=== PATIENT | male | born 1955 | race Caucasian/White ===

== ENCOUNTER 2025-07-15 05:30 | Day surgery (SDC) | payer MEDICARE, OTHER ==
[~2025-07-15] VITALS: Ht 193 cm; Wt 105.0 kg
[~2025-07-15 05:30] MED LIST: LACTATED RINGER'S 1,000 ML IV SCH
[2025-07-15 06:07] VITALS: BP 138/83
[2025-07-15] MEDS ORDERED: VITAMIN D3125 MC2 PO (06:09)
[2025-07-15] MEDS ORDERED: TURMERIC500 M3 PO (06:10)
[2025-07-15] MEDS ORDERED: BEET ROOT500 MG PO (06:11)
[2025-07-15] MEDS ORDERED: [UNRECOGNIZED DRUG - OTHER] (06:11)
[2025-07-15] MEDS ORDERED: [UNRECOGNIZED DRUG - OTHER] (06:12)
[2025-07-15] MEDS ORDERED: EO MEGA (06:12)
[2025-07-15] MEDS ORDERED: [UNRECOGNIZED DRUG - OTHER] (06:13)
[2025-07-15] MEDS ORDERED: ALPHA CRS (06:13)
[2025-07-15] MEDS ORDERED: DEXAMETHASONE SOD PHOS 4 MG/ML VIAL ONE (06:20)
[2025-07-15] MEDS ORDERED: Ropivacaine HCl 0.5% 30 ML VIAL ONE (06:21)
[2025-07-15] MEDS ORDERED: LIDOCAINE HCL 2% 20 MG/ML VIAL INJ ONE (06:21)
[2025-07-15] MEDS ORDERED: CEFAZOLIN SODIUM 1 GM/10 ML SYR IV SCH (07:00)
[2025-07-15] MEDS ORDERED: LIDOCAINE HCL 1% 5 ML SDV INJ ONE (07:00)
[2025-07-15] MEDS ORDERED: IBLOOD GLUCOSE TEST STRIP 1 EA TEST VI PRN (07:00)
[2025-07-15] MEDS ORDERED: LIDOCAINE HCL 2% 5 ML SDV ONE (07:09)
[2025-07-15] MEDS ORDERED: fentaNYL citrate 100 MCG/2 ML VIAL ONE (07:09)
[2025-07-15] MEDS ORDERED: LACTATED RINGER'S 1,000 ML IV ONE (08:47)
[2025-07-15 10:25] VITALS: BP 128/81
--- NOTE | 2025-07-15 10:37 | NUR ---
07/15/25 Chrystal Hernandez 0905- PT PRESENTS TO PACU, SEMI MARKHAM POSITION, REACTIVE TO STIMULUS. PT MOVING ALL EXTREMITIES EQUALLY. ABD SOFT, NON DISTENDED. LR INFUSING TO RH IV, BREATHING EVEN AND NON LABORED ON ROOM AIR. PT MOVING BUT NOT ABLE TO FOLLOW COMMANDS, EYES OPEN OFF AND ON. ABD SOFT, NON DISTENDED. RIGHT FOOT ELEVATED, ICE IN PLACE, DRESSING CDI. ALL MONITORS IN PLACE. 0910- XRAY AT BEDSIDE FOR FOOT. 0915- PT ROLLED TO LEFT SIDE WITH ASSISTANCE, ATTEMPTING TO REORIENT TO TIME AND PLACE. PT SEEMS TO NOT UNDERSTAND YET AT THIS TIME. 0925- PT WAKES AND OPENS EYES, DENIES PAIN AND NAUSEA. REPORTS HE FEELS LIKE HE IS FIGURING OUT WHERE HE IS. NO SIGNS OF DISTRESS. 0937- PT SAT UP IN BED, ICE WATER PROVIDED, TOLERATING WELL. 0948- PT UP TO SIDE OF BED, TOLERATING WELL. CALLED FOR RIDE HOME. 1000- PT VERBALIZED UNDERSTANDING OF INSTRUCTIONS. DRESSING CDI, POST OP SHOE IN PLACE. SALINE LOCK REMOVED, TIP INTACT, DRESSING APPLIED. PT DRESSED ON OWN, TRANSFERRED TO WHEELCHAIR WITH STEADY GAIT, TAKEN OUT TO FAMILY CAR WITH ALL BELONGINGS.
--- NOTE | 2025-07-21 12:32 | OR ---
[facility] [address] [place], [place] [address] Signed DATE OF OPERATION: 07/15/2025 SURGEON: Latrice Verma DPM PREOPERATIVE DIAGNOSIS: Hallux malleus, right first digit. POSTOPERATIVE DIAGNOSIS: Hallux malleus, right first digit. PROCEDURE: Fusion or arthrodesis of the right first IPJ. CLOTH HANDLER: Hollis Preciado DPM. ANESTHESIOLOGIST: Bella Taveras CRNA ANESTHESIA: Local with MAC, approximately 15 mL of 0.5% ropivacaine and 2% lidocaine, mixed in a 1:1 mixture ratio was injected, while the patient's right forefoot. HEMOSTASIS: With an ankle tourniquet. ESTIMATED BLOOD LOSS: Less than 5 mL or minimal. MATERIALS UTILIZED: We had 3-0 Vicryl, 4-0 Vicryl, 5-0 nylon, and two 2.5 cannulated screws PROCEDURE IN DETAIL: The patient was brought into the operating room and placed upon the operating table in the supine position. Following IV sedation, the above local anesthesia was administered about the patient's right first MTPJ region. The right foot was then scrubbed, prepped and draped in the usual sterile technique. Esmarch bandage was then utilized to exsanguinate and the patient's right foot and then left wrapped around the ankle to act as tourniquet. Attention was then directed to the dorsal aspect of the right first IPJ where a lazy-S incision was performed starting along the medial aspect superior to the Electronically Signed By: LATRICE VERMA DPM 07/21/25 1232 PATIENT NAME: ABIOLA ABARCA OPERATIVE REPORT DATE OF : 51 REPORT #: [id number] PHYSICIAN: LATRICE VERMA DPM PCP: KEYANA WAYNE MD REPORT IS CONFIDENTIAL AND NOT TO BE RELEASED WITHOUT AUTHORIZATION [facility] [address] [place], [place] [address] Signed IPJ, a transverse segment extending horizontal across the IPJ and then another leg on the dorsolateral aspect of the first digit extending on to the distal phalanx region. The incision was then deepened through the subcutaneous tissue utilizing #64 blade. The bleeders were cauterized and ligated as necessary. Careful dissection continued down to level of the extensor tendon. A #64 blade was utilized to form a tenotomy and capsulotomy thus exposing access to the IPJ. Normal coloration was observed at the joint level. Decreased articular cartilage present and of course osteophyte formation around the joint with normal color and trabecular pattern and bone density. Sagittal saw was then utilized to resect the articular surface of the head of the proximal phalanx as well as the base of the distal phalanx. Exostosis formation was also reduced utilizing rongeurs around the periphery. The raw areas of bone were then fenestrated utilizing the K-wire in both the proximal and distal phalanx. The joint area was then reapproximated in a more corrected rectus position and a K-wire was inserted across the IPJ for temporary fixation. Next, 2 crossed K wires were then placed from the base of the distal phalanx into the metaphyseal near head area of the proximal phalanx. This was performed from distal medial to proximal lateral and again distal lateral to proximal medial. Verification and good placement was verified with intraoperative C-arm fluoroscopy. The central K-wire was then removed and 2 cannulated 2.5 mm screws were placed. The screw that went into the distal- lateral to proximal medial did not have good bite and also there was some displacement with compression at the fusion site. Therefore, this screw was replaced and readjusted and new placement was found and with placement of this screw good stability was observed across the IPJ intraoperatively. The area was flushed with copious amounts of sterile normal saline. 3-0 Vicryl was utilized to reapproximate and coapt joint capsule and the extensor tendon. The subcutaneous tissue was reapproximated and coapted utilizing 4-0 Vicryl and skin was reapproximated and coapted utilizing 5-0 nylon in the continuous interlocking suture technique. Postoperative injection consisting of 5 mL of 0.5% ropivacaine and 1 mL of dexamethasone phosphate 4 mg was injected. There was approximately 1 mL left of this mixture. This was injected along the medial aspect of the patient's foot near the MTPJ. Surgical site was then dressed with Adaptic, moist Betadine saturated gauze, rolled gauze, and Coban. Ankle tourniquet was removed. Prompt hyperemic response was noted to all digits of the patient's right foot. The patient was then escorted to the recovery area with vital signs stable and with capillary refill time being grossly intact to all digits. Following the period of postoperative monitoring, the patient was discharged to home with both written and oral instructions. Latrice Verma DPM Electronically Signed By: LATRICE VERMA DPM 07/21/25 1232 PATIENT NAME: ABIOLA ABARCA OPERATIVE REPORT DATE OF : 51 REPORT #: [id number] PHYSICIAN: LATRICE VERMA DPM PCP: KEYANA WAYNE MD REPORT IS CONFIDENTIAL AND NOT TO BE RELEASED WITHOUT AUTHORIZATION [facility] [address] [place] [address] Signed /MODL /[id number] Copies: ~ Electronically Signed By: LATRICE VERMA DPM 07/21/25 1232 PATIENT NAME: ABIOLA ABARCA OPERATIVE REPORT DATE OF : 51 REPORT #: [id number] PHYSICIAN: LATRICE VERMA DPM PCP: KEYANA WAYNE MD REPORT IS CONFIDENTIAL AND NOT TO BE RELEASED WITHOUT AUTHORIZATION
== END 2025-07-15 10:00 | disposition home or self-care (01) ==
LOC: DS 05:30
PROVIDERS: ATTEND Podiatrist Foot & Ankle Surgery
PROC: 0SGP04Z Fusion of Right Toe Phalangeal Joint with Internal Fixation Device, Open Approach (ICD-10-PCS; principal; 2025-07-15 07:00)
DX: M20.31 Hallux varus (acquired), right foot (principal); M20.41 Other hammer toe(s) (acquired), right foot
CPT/HCPCS: 01480; 73630; 73660; C1713; J0690; J1100; J2003; J2704; J2795; J3010; J7121